=== PATIENT | male | born 1960 | race Two or more races ===

== ENCOUNTER 2024-02-15 21:03 | Emergency (ER) | payer OTHER ==
[~2024-02-15] VITALS: Ht 180.3 cm; Wt 83.9 kg
[2024-02-15 23:31] VITALS: BP 156/80; TEMP 98.8
[2024-02-16] MEDS ORDERED: NAPR-1009 PO (01:46)
[2024-02-16 02:32] VITALS: O2SAT 97
== END 2024-02-16 02:32 | disposition home or self-care (01) ==
LOC: ER 21:08
DX: S80.02XA Contusion of left knee, initial encounter (principal); M79.672 Pain in left foot; M25.562 Pain in left knee; M54.50 Low back pain, unspecified; R42 Dizziness and giddiness; F17.200 Nicotine dependence, unspecified, uncomplicated; Z90.49 Acquired absence of other specified parts of digestive tract; V49.59XA Passenger injured in collision with other motor vehicles in traffic accident, initial encounter; Y93.89 Activity, other specified; Y92.488 Other paved roadways as the place of occurrence of the external cause; Y99.8 Other external cause status
CPT/HCPCS: 70450-TC; 72131-TC; 73564-TC; 73610-TC